=== PATIENT | female | born 1960 | race Caucasian/White ===

== ENCOUNTER → 2023-11-01 12:30 | Outpatient (REF) | payer MEDICARE, SELFPAY | LOC: RAD 12:30 | PROVIDERS: ATTENDING PHYSICIAN Physical Medicine & Rehabilitation; FAMILY PHYSICIAN Family Medicine | DX: M54.17 Radiculopathy, lumbosacral region (principal) | CPT/HCPCS: 72110 ==

== ENCOUNTER → 2023-12-10 16:55 | Outpatient (REF) | payer MEDICARE, SELFPAY | LOC: PAVMRI 16:55 | PROVIDERS: ATTENDING PHYSICIAN Physical Medicine & Rehabilitation; FAMILY PHYSICIAN Family Medicine | DX: M54.17 Radiculopathy, lumbosacral region (principal) | CPT/HCPCS: 72148 ==

== ENCOUNTER 2023-12-25 19:57 | Emergency (ER) | payer MEDICARE, SELFPAY ==
[2023-12-25 19:57] VITALS: BMI 28.1
[2023-12-25 20:03] VITALS: BP 106/62
[2023-12-25 20:18] LABS: % Basophils 0.9 % (0-2); % Immature Granulocytes 0.2 % (0-0.5); % Lymphocytes 29.5 % (20.5-51.1); % Neutrophils 59.4 % (42.2-75.2); Absolute Basophils 0.1 10^3/uL (0-0.2); Absolute Eosinophils 0.2 10^3/uL (0-0.7); Absolute Lymphocytes 1.6 10^3/uL (1.2-3.4); Absolute Monocytes 0.4 10^3/uL (0.1-0.6); Absolute Neutrophils 3.2 10^3/uL (1.4-6.5); Hematocrit 34.1 % (37.0-47.0); Hemoglobin 11.6 g/dL (12.0-16.0); Mean Corpuscular Hgb 32.3 pg (27.0-31.0); Mean Platelet Volume 9.5 fL (7.4-10.4); Nucleated Red Blood Cells % 0 %; Platelet Count 211 10^3/uL (130-400); Red Blood Cell Count 3.59 10^6/uL (4.20-5.40); Red Cell Dist. Width 12.5 % (11.5-14.5); White Blood Cell Count 5.3 10^3/uL (4.8-10.8)
--- NOTE | 2023-12-25 20:23 | ED.GENMED ---
History of Present Illness
General
Chief Complaint: Blood Pressure Problem
Source: patient
Exam Limitations: none
Time Seen by Provider: 12/25/23 20:17
Nursing documentation reviewed up to this point in time: agreed with
Travel History
Have you had any contact with someone who has COVID-19?: No
Do you have any symptoms of coronavirus? Fever > 100 degrees, chills, cough, shortness of breath, sore throat, loss of taste or smell, muscle aches, or headache?: No
History of Present Illness
History of Present Illness:
Pleasant 63-year-old female that presents with hypotension. Patient states that she took her nighttime meds of tramadol and ropinirole. Her friend then came over and they had several alcoholic beverages. She states that she felt lightheaded and
woozy. She called 911 and they arrived to find her hypotensive. They gave her a liter of fluid and upon arrival patient was asymptomatic with a blood pressure of 118 systolic. Patient has no complaints at this time and states that she feels
sleepy but otherwise normal. At no point did she have chest pain or shortness of breath.
Past History
Past History
ED Past Medical History: Psychiatric (anxiety, depression) and Other (chronic low back pain under pain management)
Social History
Tobacco: Former smoker
Alcohol: None
Personal: Single
Living: alone
Review of Systems
Review of Systems
Allergies reviewed?: Yes
All Other Systems: ROS reviewed and negative except as documented in HPI and ROS
Constitutional: Reports no symptoms
EENT: Reports no symptoms
Respiratory: Denies cough or trouble breathing
Cardiac: Reports no symptoms
ABD/GI: Reports no symptoms
: Reports no symptoms
Musculoskeletal: Reports no symptoms
Skin: Reports no symptoms
Neurological: Reports no symptoms
Endocrine: Reports no symptoms
Hematologic/Lymphatic: Reports no symptoms
Psychiatric: Reports anxiety
Phy Exam
General Physical Exam
General Presentation: well appearing and no apparent distress
General Skin: warm and dry
General Habitus: normal
General Mental: alert
General Hydration: appears well hydrated
ENT Exam
ENT Exam: EOMI, pharynx normal, neck supple and normocephalic
Eye Exam
Eye Exam: PERRL, cornea clear and conjunctiva normal
Cardiovascular Exam
Cardiovascular Exam: regular rate/rhythm, no edema, no murmur and normal peripheral pulses
Pulmonary Exam
Pulmonary Exam: lungs clear, no respiratory distress, no rales, no crackles, no rhonchi, no stridor, no wheezing and no cough
Gastrointestinal Exam
Gastrointestinal Exam: normal bowel sounds, non tender, soft, no organomegaly, no pulsatile mass and non distended
Neurological Exam
Neurological Exam: alert, oriented x3, no motor deficits and speech normal
Musculoskeletal Exam
Musculoskeletal Exam: full ROM and no edema
Skin Exam
Skin Exam: normal color, warm/dry, no rash and no petechia
Psychiatric Exam
Psychiatric Exam: normal mood/affect
Course
Orders/Labs/Results
Orders:
Orders
12/25/23 20:12
Complete Blood Count/With Diff Urgent
Comprehensive Metabolic Panel Urgent
12/25/23 20:40
Troponin I Urgent
12/25/23 22:00
Ambulate Patient-Treatment ONCE
Abnormal Lab Results
12/25/23
20:12
RBC 3.59 L 10^6/uL
(4.20-5.40)
Hgb 11.6 L g/dL
(12.0-16.0)
Hct 34.1 L %
(37.0-47.0)
MCH 32.3 H pg
(27.0-31.0)
Sodium 131 L mmol/L
(135-145)
Glucose 351 H mg/dl
(70-99)
Calcium 8.1 L mg/dl
(8.4-10.2)
Total Protein 5.2 L g/dl
(6.3-8.2)
Albumin 3.0 L g/dl
(3.5-5.0)
12/25/23 20:12
12/25/23 20:12
Vital Signs
Initial and Last Documented VS:
Initial Vital Signs
Temp Pulse Resp Pulse Ox
97.8 F 98 16 99
12/25/23 20:00 12/25/23 20:00 12/25/23 20:00 12/25/23 20:00
Last Documented Vital Signs
Temp Pulse Resp BP Pulse Ox
97.8 F 85 22 116/73 99
12/25/23 20:00 12/25/23 21:30 12/25/23 21:30 12/25/23 21:30 12/25/23 21:30
*Critical Care Note
Total Time (30-74mins, 75-104mins- exclusive of procedures): Not Applicable
Update Note
Update Note:
Patient was able to ambulate without issue. Blood pressure remained steady. She ate a full [employer] meal while in the room. She has no issues. Patient to be discharged home.
ED Attending Note
-
Portions of this chart may have been created with voice recognition software.� Occasional wrong word or��sound alike� substitutions may have occurred due to the inherent limitations of voice recognition software.
Discharge Plan
Departure
Patient Disposition: Home (Routine Discharge)
Date of Disposition: 12/25/23
Time of Disposition: 22:15
Patient with high blood pressure during this ER visit?: Yes
Condition: Good
Discharge Problem:
Acute hypotension, Lightheadedness
Instructions: Low Blood Pressure (DC), Dizziness, Adult ED
Referrals:
Oliver Mccauley MD [Family Provider] -
Activity Restrictions/Additional Instructions:
It was a pleasure meeting you and taking part in your care. We hope for your continued healing and wellness.
Please read discharge instructions in their entirety. However, they are for general education and may not describe your exact diagnosis at discharge. Information on your ER visit and medical conditions were discussed with you along with appropriate
follow up information...
If indicated, please take your medications as instructed and indicated on discharge paperwork.
Please schedule a follow up appointment as directed. Call to schedule an appointment
Please return to the emergency department with ANY change in, persisting, or worsening of symptoms. If any of your symptoms do not improve, or persist, or become more severe within 6-12 hours, please return to the emergency department for further
care.
Please return to the emergency department if you develop a headache, neck pain/stiffness, fever greater than 100.4F, chest pain, shortness of breath, persistent nausea, vomiting, slurred speech, difficulty walking, numbness/tingling, weakness, signs
of infection or any other symptoms that are worrisome to you.
If you have any questions or concerns please do not hesitate to call the Hospital at or E-mail me directly at [email or web address]
Interventions
Interventions:
*Risk Screen - Suicide Last Done: 12/25/23 20:00
*General Assessment Last Done: 12/25/23 20:00
*Neglect/Abuse Screening Last Done: 12/25/23 20:00
ED- Fall Risk Assessment Last Done: 12/25/23 20:00
*ED COVID-19 Vaccine History Last Done: 12/25/23 20:00
*Nursing Disposition Last Done: 12/25/23 22:19
ED- Cardiac Assessment Last Done: 12/25/23 20:09
ED- Neurological Assessment Last Done: 12/25/23 20:09
ED- Pulmonary Assessment Last Done: 12/25/23 20:09
Discharge Date and Time
Discharge Date/Time: 12/25/23 22:22
Print Language: [id number]
[2023-12-25 20:30] VITALS: BP 88/63
[2023-12-25 20:35] LABS: ALT (SGPT) 15 U/L (0-35); AST (SGOT) 24 U/L (14-36); Alkaline Phosphatase 48 U/L (38-126); Blood Urea Nitrogen 15 mg/dl (7-17); Calcium 8.1 mg/dl (8.4-10.2); Carbon Dioxide 23 mmol/L (22-30); Chloride 102 mmol/L (98-107); Estimated Creatinine Clearance 77 ml/min; Glucose 351 mg/dl (70-99); Sodium 131 mmol/L (135-145); Total Bilirubin 0.3 mg/dl (0.2-1.3); Total Protein 5.2 g/dl (6.3-8.2); eGFR > 60.00
[2023-12-25 20:50] VITALS: BP 105/65
[2023-12-25 21:00] VITALS: BP 108/64
[2023-12-25 21:15] LABS: Troponin I < 0.012 ng/ml
[2023-12-25 21:30] VITALS: BP 116/73
== END 2023-12-25 22:22 | disposition home or self-care (01) ==
LOC: EMR 19:57
PROVIDERS: EMERGENCY PHYSICIAN Student in an Organized Health Care Education/Training Program; FAMILY PHYSICIAN Family Medicine
DX: R42 Dizziness and giddiness (principal); I95.9 Hypotension, unspecified; F10.90 Alcohol use, unspecified, uncomplicated; F32.A Depression, unspecified; F41.9 Anxiety disorder, unspecified; M54.50 Low back pain, unspecified; G89.29 Other chronic pain; Z87.891 Personal history of nicotine dependence; Z98.1 Arthrodesis status; Z91.040 Latex allergy status; Z91.048 Other nonmedicinal substance allergy status
CPT/HCPCS: 99283; 80053; 84484; 85025

== ENCOUNTER → 2024-01-05 09:05 | Outpatient (REF) | payer MEDICARE, SELFPAY | LOC: RAD 09:05 | PROVIDERS: ATTENDING PHYSICIAN Internal Medicine Rheumatology; FAMILY PHYSICIAN Family Medicine | DX: M81.0 Age-related osteoporosis without current pathological fracture (principal) | CPT/HCPCS: 77080 ==